=== PATIENT | female | born 1965 | race Caucasian/White ===

== ENCOUNTER 2019-08-28 07:29 | Emergency (ER) | payer OTHER, SELFPAY ==
[2019-08-28 07:14] VITALS: BP 100/67; PULSE 67; RESP 17; TEMP 36.7; O2SAT 99; BMI 22.1
[2019-08-28] MEDS: SODIUM CHLORIDE 0.9% 1,000 ML 1000 ML IV (08:00)
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
[2019-08-28 08:05] LABS: Add Manual Diff / Slide Review NO; Basophils Absolute Auto 100 /uL (0-100); Basophils Percent Auto 0.7 % (0-2); Eosinophils Absolute Auto 300 /uL (0-450); Eosinophils Percent Auto 3.7 % (2-4); Hematocrit 43.2 % (36-46); Hemoglobin 14.4 g/dL (12.0-16.0); Lymphocytes Absolute Auto 1500 /uL (1100-4500); Lymphocytes Percent Auto 20.7 % (25-40); Mean Corpuscular HGB Conc 33.3 % (30-36); Mean Corpuscular Hemoglobin 29.3 PG (26-34); Mean Corpuscular Volume 87.9 fL (80-100); Monocytes Absolute Auto 400 /uL (0-900); Monocytes Percent Auto 4.8 % (3-14); Neutrophils Absolute Auto 5200 /uL (1500-7000); Neutrophils Percent Auto 70.1 % (50-75); Platelet Count 261 X10^3/uL (150-400); Red Blood Cell Count 4.91 X10^6/uL (4.0-5.2); White Blood Cell Count 7.4 X10^3/uL (4.5-11.0)
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
[2019-08-28 08:21] LABS: Alanine Aminotransferase 15 IU/L (<35); Albumin 4.1 g/dL (3.5-5.0); Albumin Globulin Ratio 1.8 (1.0-2.8); Alkaline Phosphatase 57 U/L (38-126); Aspartate Aminotransferase 25 IU/L (14-36); BUN Creatinine Ratio 8.8 (6-22); Bilirubin Total 0.4 mg/dL (0.2-1.3); Blood Urea Nitrogen 7 mg/dL (7-17); Calcium 9.1 mg/dL (8.4-10.2); Carbon Dioxide 25 mmol/L (22-32); Chloride 105 mmol/L (98-107); Estimated Glomerular Filt Rate > 60.0 mL/min (>60); Ethanol (ETOH) < 10 mg/dL; Globulin 2.3 g/dL (1.7-4.1); Glucose 84 mg/dL (70-100); HEMOLYSIS < 15 (0-50); Sodium 138 mmol/L (137-145); Total Protein 6.4 g/dL (6.3-8.2)
--- NOTE | 2019-08-28 09:01 | PC.NURSE ---
at bedside, Ok per patient to speak with
[2019-08-28 09:32] VITALS: BP 112/77; PULSE 65; RESP 13; O2SAT 100
[2019-08-28 10:21] VITALS: BP 104/78; PULSE 66; RESP 14
== END 2019-08-28 10:57 | disposition home or self-care (01) ==
PROVIDERS: Emergency Provider Emergency Medicine
DX: S02.2XXA Fracture of nasal bones, initial encounter for closed fracture (principal); S00.12XA Contusion of left eyelid and periocular area, initial encounter; R41.3 Other amnesia
CPT/HCPCS: 36415; 70450; 70486; 80053; 80320; 85025; 96360; 96361; 99284

== ENCOUNTER → 2019-09-14 09:08 | Outpatient (CLI) | payer OTHER, SELFPAY ==
[2019-09-14 10:18] LABS: Magnesium 2.1 mg/dL (1.6-2.3)
[2019-09-14 11:06] LABS: Vitamin B12 467 pg/mL (239-931)
[2019-09-14 11:10] LABS: Thyroid Stimulating Hormone 0.81 uIU/mL (0.47-4.68)
== END ==
PROVIDERS: PCP Family Medicine; Visit Provider Nurse Practitioner Family
DX: R55 Syncope and collapse (principal); E03.9 Hypothyroidism, unspecified
CPT/HCPCS: 36415; 82607; 83735; 84443